=== PATIENT | male | born 2000 | race Hispanic/Latino ===

== ENCOUNTER 2022-05-29 13:10 | Emergency (ER) | payer SELFPAY ==
[2022-05-29] MEDS ORDERED: ACETAMINOPHEN 500 MG TAB PO ONE (13:25)
[2022-05-29] MEDS ORDERED: SODIUM CHLORIDE 0.9% 500 ML 500 ML IV ONE (13:50)
--- NOTE | 2022-05-29 14:32 | XRay Report ---
CHEST 2 VIEWS INDICATION / CLINICAL INFORMATION: possible Sepsis. COMPARISON: None available. FINDINGS: SUPPORT DEVICES: None. HEART / MEDIASTINUM: No significant abnormality. LUNGS / PLEURA: No significant pulmonary or pleural abnormality. No pneumothorax. ADDITIONAL FINDINGS: Small azygos lobe incidentally noted. IMPRESSION: 1. No acute findings. Signer Name: Libby Dent MD Signed: 05/29/2022 2:28 PM Workstation Name: [email or web address]
[2022-05-29 15:05] LABS: Hematocrit 50.8 % (35.5-45.6); Hemoglobin 17.4 gm/dl (11.8-15.2); Mean Corpuscular HGB Conc 34 % (32-34); Mean Corpuscular Volume 98 fl (84-94); Platelet Count 199 K/mm3 (140-440); Red Blood Count 5.21 M/mm3 (3.65-5.03); Red Cell Distribution Width 12.8 % (13.2-15.2)
[2022-05-29 15:14] LABS: Alanine Aminotransferase 9 units/L (7-56); Albumin 4.9 g/dL (3.9-5); BUN/Creatinine Ratio 12; Blood Urea Nitrogen 13 mg/dL (9-20); Calcium 9.6 mg/dL (8.4-10.2); Hemolysis Index 9
[2022-05-29 15:15] LABS: INR 1.17 (0.87-1.13)
--- NOTE | 2022-05-29 16:37 | Emergency Department Report ---
ED General Adult HPI - General Chief complaint: Chest Pain Stated complaint: CHEST PAIN/ABD PAIN Time Seen by Provider: 05/29/22 16:19 Source: patient Mode of arrival: Ambulatory Limitations: No Limitations - History of Present Illness Initial comments: 22 yo M with h/o SVT s/p cardiac ablation in 2014 who now present with left lower abdominal pain that started from his chest radiating to his abdomen. Pain started in his chest this morning only to work its way into his lower abdomen. He rated pain as 7-8/10 in severity and worsen with movement. No history or kidney stone or blood in stool or urine. Taken a deep breath did not worsen pain. No fever or chills reported or any other modifying or associated factors. Severity scale (0 -10): 10 - Related Data Previous Rx's Medication Instructions Recorded Last Taken Type Ciprofloxacin HCl 500 mg PO BID 14 Days #28 tab NS 05/29/22 Unknown Rx Ketorolac [Toradol] 10 mg PO Q6H PRN 5 Days #20 tab NS 05/29/22 Unknown Rx Ondansetron (Nf) [Zofran TAB] 8 mg PO Q8HR PRN 5 Days #15 tablet 05/29/22 Unknown Rx NS Allergies Allergy/AdvReac Type Severity Reaction Status Date / Time No Known Allergies Allergy Unverified 05/29/22 13:12 ED Review of Systems ROS: Stated complaint: CHEST PAIN/ABD PAIN Other details as noted in HPI Comment: All other systems reviewed and negative Cardiovascular: chest pain Gastrointestinal: abdominal pain (LLQ radiating to suprapubic and RLQ-- ), nausea. denies: vomiting ED Past Medical Hx - Past Medical History Additional medical history: SVT - Surgical History Additional Surgical History: CATH ABLASION - Medications Home Medications: Home Medications Medication Instructions Recorded Confirmed Last Taken Type Ciprofloxacin HCl 500 mg PO BID 14 Days #28 tab NS 05/29/22 Unknown Rx Ketorolac [Toradol] 10 mg PO Q6H PRN 5 Days #20 tab NS 05/29/22 Unknown Rx Ondansetron (Nf) [Zofran TAB] 8 mg PO Q8HR PRN 5 Days #15 tablet 05/29/22 Unknown Rx NS ED Physical Exam - General Limitations: No Limitations General appearance: alert, in no apparent distress - Head Head exam: Present: normal inspection - Eye Eye exam: Present: normal appearance Pupils: Present: normal accommodation - ENT ENT exam: Present: normal exam, normal orophraynx. Absent: mucous membranes moist - Neck Neck exam: Present: normal inspection. Absent: tenderness - Respiratory Respiratory exam: Present: normal lung sounds bilaterally. Absent: respiratory distress, accessory muscle use - Cardiovascular Cardiovascular Exam: Present: regular rate, normal rhythm, normal heart sounds - GI/Abdominal GI/Abdominal exam: Present: soft, tenderness (LLQ and suprapubic and RLQ with gaurding without rebound), guarding, normal bowel sounds. Absent: rebound - Extremities Exam Extremities exam: Present: normal inspection, normal capillary refill. Absent: tenderness, pedal edema - Back Exam Back exam: Absent: tenderness - Neurological Exam Neurological exam: Present: alert, oriented X3 - Psychiatric Psychiatric exam: Present: normal affect, normal mood - Skin Skin exam: Present: warm, normal color ED Course Vital Signs 05/29/22 13:12 Temperature 102.8 F H Pulse Rate 121 H Respiratory 18 Rate Blood Pressure 126/64 O2 Sat by Pulse 100 Oximetry ED Medical Decision Making - Lab Data Result diagrams: 05/29/22 14:28 05/29/22 14:28 - Radiology Data FINDINGS: LOWER CHEST: No significant abnormality. LIVER: No significant abnormality. GALLBLADDER: No significant abnormality. BILE DUCTS: No significant abnormality. PANCREAS: No significant abnormality. SPLEEN: No significant abnormality. ADRENALS: No significant abnormality. RIGHT KIDNEY / URETER: No significant abnormality. LEFT KIDNEY / URETER: No significant abnormality. STOMACH / SMALL BOWEL: No significant abnormality. COLON: No significant abnormality. APPENDIX: No significant abnormality. PERITONEUM: No free fluid. No free air. No fluid collection. LYMPH NODES: No significant adenopathy. AORTA / ARTERIES: No significant abnormality. IVC / VEINS: No significant abnormality. URINARY BLADDER: Questionable perivesicular stranding. REPRODUCTIVE ORGANS: Parametrial vascular fullness as well as subjective soft tissue fullness at the cervix. No dominant adnexal mass. ADDITIONAL FINDINGS: None. SKELETAL SYSTEM: No significant abnormality. IMPRESSION: 1. Possible cystitis. Correlate with urinalysis. 2. 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 - Medical Decision Making Here with abdominal pain--differential could be but not limited to gastroenteritis, GERD or gastritis, appendicitis, diverticulitis, cholecystitis, cholelithiasis, nephrolithiasis, pancreatitis, duodenitis, colitis, irritable bowel syndrome, cystitis, so in order to rule this out we will go ahead and or bobo routine acute abdomen that include CBC, CMP, urinalysis, and CT imaging of the abdomen/pelvic. lab reviewed and noted elevated H&H -- with normal BUN/Cr-- but with UA positive with bacteria and CT abd/pel suspected of cystitis -- will d/c patient home on antibiotics and pyridium-- Critical care attestation.: If time is entered above; I have spent that time in minutes in the direct care of this critically ill patient, excluding procedure time. ED Disposition Clinical Impression: Cystitis Abdominal pain Qualifiers: Abdominal location: unspecified location Qualified Code(s): R10.9 - Unspecified abdominal pain Disposition: 01 HOME / SELF CARE / HOMELESS Is pt being admited?: No Does the pt Need Aspirin: No Condition: Stable Instructions: Abdominal Pain, Adult, [id number] Additional Instructions: It is very important that you take and complete your antibiotics as prescribed to continue to help your symptoms Increase your daily fluid to help your hydration Call and schedule follow-up with your primary doctor in the next 3 to 5 days for progress Please do not hesitate to call or return to emergency if your symptoms worsen Prescriptions: Ciprofloxacin HCl 500 mg PO BID 14 Days #28 tab NS Ketorolac [Toradol] 10 mg PO Q6H PRN 5 Days #20 tab NS PRN Reason: Pain Ondansetron (Nf) [Zofran TAB] 8 mg PO Q8HR PRN 5 Days #15 tablet NS PRN Reason: Nausea Time of Disposition: 18:41
[2022-05-29 17:08] LABS: Color,Urine Amber (Yellow)
[2022-05-29 17:11] LABS: Bacteria,Urine 1+ /HPF (Negative); Mucus,Urine FEW /HPF
[2022-05-29] MEDS ORDERED: SODIUM CHLORIDE 0.9% 500 ML 500 ML ONE (17:11)
[2022-05-29 17:21] LABS: Basophils % (Manual) 0 % (0.0-1.8); Eosinophils % (Manual) 0 % (0.0-4.3); Total Cells Counted 100
[2022-05-29 17:22] LABS: Platelet Estimate Consistent w Auto; RBC Morphology Normal
[2022-05-29 17:24] LABS: Amphetamine Screen,Urine Negative; Benzodiazepines Screen,Urine Negative; Cocaine Screen,Urine Negative; Methadone Screen,Urine Negative; Opiate Screen,Urine Negative
[2022-05-29 17:51] LABS: Cannabinoid Screen,Urine Positive
--- NOTE | 2022-05-29 18:00 | Cat Scan Report ---
CT ABDOMEN AND PELVIS WITH CONTRAST INDICATION / CLINICAL INFORMATION: LLQ and suprapubic. TECHNIQUE: Axial CT images were obtained through the abdomen and pelvis after 100 IV contrast. All C T scans at this location are performed using CT dose reduction for ALARA by means of automated exposu re control. COMPARISON: None available. FINDINGS: LOWER CHEST: No significant abnormality. LIVER: No significant abnormality. GALLBLADDER: No significant abnormality. BILE DUCTS: No significant abnormality. PANCREAS: No significant abnormality. SPLEEN: No significant abnormality. ADRENALS: No significant abnormality. RIGHT KIDNEY / URETER: No significant abnormality. LEFT KIDNEY / URETER: No significant abnormality. STOMACH / SMALL BOWEL: No significant abnormality. COLON: No significant abnormality. APPENDIX: No significant abnormality. PERITONEUM: No free fluid. No free air. No fluid collection. LYMPH NODES: No significant adenopathy. AORTA / ARTERIES: No significant abnormality. IVC / VEINS: No significant abnormality. URINARY BLADDER: Questionable perivesicular stranding. REPRODUCTIVE ORGANS: Parametrial vascular fullness as well as subjective soft tissue fullness at the cervix. No dominant adnexal mass. ADDITIONAL FINDINGS: None. SKELETAL SYSTEM: No significant abnormality. IMPRESSION: 1. Possible cystitis. Correlate with urinalysis. 2. Parametrial vascular congestion and cervical soft tissue fullness which may be related to the triston ent's menstrual cycle, however correlate with physical/biochemical examination is findings can be ass ociated with ORACLE ARCHITECT infection. Signer Name: Libby Dent MD Signed: 05/29/2022 5:55 PM Workstation Name: [email or web address]
[2022-05-29] MEDS ORDERED: KETOROLAC 10 MG TAB PO ONE (19:34)
[2022-05-29 19:41] VITALS: BP 106/70
--- NOTE | 2022-06-02 13:59 | Electrocardiograph Report ---
[facility] [place] [facility] Test Date: 2022-05-29 Test Time: 13:16:26 Pat Name: ADITYA HEMPHILL Department: Room: Gender: M Senior Project Coordinator: AF : 2000 Requested By: BOB DANG Order Number: [id number] Reading MD: Vicenta Freeman Measurements Intervals [place] Rate: 117 P: 59 UT: 143 QRS: 47 QRSD: 82 T: -8 QT: 286 QTc: 400 Interpretive Statements Sinus tachycardia No previous ECG available for comparison Electronically Signed On 06-02-2022 13:59:30 EDT by Vicenta Freeman
== END 2022-05-29 19:41 | disposition home or self-care (01) ==
LOC: ED 13:10
DX: N30.90 Cystitis, unspecified without hematuria (principal); R10.9 Unspecified abdominal pain; Z79.899 Other long term (current) drug therapy
CPT/HCPCS: 36415; 71046; 74177; 80053; 80307; 81001; 82140; 82805; 85007; 85025; 85610; 87040; 87086; 93005; 96360; 99284; J7040; Q9967